=== PATIENT | male | born 1995 | race Caucasian/White ===

== ENCOUNTER → 2022-11-03 13:37 | Outpatient (CLI) | payer SELFPAY ==
[2022-11-03 15:23] LABS: Urine N gonorrhoeae NOT DETECTED
[2022-11-03 15:27] LABS: Urine Chlamydia NOT DETECTED
== END ==
PROVIDERS: Visit Provider Nurse Practitioner Family
DX: N50.819 Testicular pain, unspecified (principal); R36.1 Hematospermia
CPT/HCPCS: 87086; 87491; 87591

== ENCOUNTER → 2024-02-26 17:45 | Outpatient (CLI) | payer OTHER, SELFPAY ==
[2024-02-26 19:04] LABS: COVID-19 CEPHEID 4-PLEX PCR Negative (Negative); Influenza A - CEPHEID Flu A NEGATIVE (NEGATIVE); Influenza B - CEPHEID Flu B NEGATIVE (NEGATIVE); Respiratory Syncytial Virus Negative (Negative)
== END ==
PROVIDERS: Visit Provider Physician Assistant Surgical
DX: R05.1 Acute cough (principal)
CPT/HCPCS: 0241U